=== PATIENT | female | born 1955 | race Caucasian/White ===

== ENCOUNTER 2016-12-06 16:29 | Emergency (ER) | payer OTHER ==
[2016-12-06 16:32] VITALS: BP 131/86
[2016-12-06] MEDS ORDERED: DIAZEPAM 5 MG TABLET ONE (16:56)
[2016-12-06] MEDS ORDERED: KETOROLAC 30 MG/1 ML IM ONE (17:00)
[2016-12-06] MEDS ORDERED: DIAZEPAM 5 MG TABLET PO ONE (17:00)
== END 2016-12-06 18:02 | disposition home or self-care (01) ==
LOC: ED 16:57
DX: M51.36 Other intervertebral disc degeneration, lumbar region (principal); M54.41 Lumbago with sciatica, right side
CPT/HCPCS: 72110